=== PATIENT | male | born 1965 | race Caucasian/White ===

== ENCOUNTER → 2025-03-31 12:22 | Outpatient (REF) | payer BC, SELFPAY | LOC: HWRAD 12:22 | PROVIDERS: ATTENDING PHYSICIAN Internal Medicine; FAMILY PHYSICIAN Family Medicine | DX: M54.9 Dorsalgia, unspecified (principal); M54.50 Low back pain, unspecified | CPT/HCPCS: 74018 ==

== ENCOUNTER 2025-11-14 17:39 | Emergency (ER) | payer SELFPAY ==
[2025-11-14 17:41] VITALS: BP 103/61
--- NOTE | 2025-11-14 19:39 | ED.GENMED ---
History of Present Illness
General
Chief Complaint: Musculo-Skeletal Complaint
Time Seen by Provider: 11/14/25 19:26
History of Present Illness
History of Present Illness:
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 Was able to ambulate without
assistance after the fact. Able to range knee and ankle without difficulty but pain with plantarflexion.
Past History
Past History
ED Past Medical History: Arrthythmia and NIDDM
Social History
Tobacco: Smoker
Alcohol: Occasional
Drug: None
Personal:
Living: with family
Employment: Employed
Family History
Family History: Other
Phy Exam
General Physical Exam
General Presentation: well appearing and no apparent distress
General Skin: warm and dry
General Habitus: normal
General Mental: alert
General Hydration: appears well hydrated
ENT Exam
ENT Exam: EOMI, pharynx normal, neck supple and normocephalic
Eye Exam
Eye Exam: PERRL, cornea clear and conjunctiva normal
Cardiovascular Exam
Cardiovascular Exam: regular rate/rhythm, no edema, no murmur and normal peripheral pulses
Pulmonary Exam
Pulmonary Exam: lungs clear, no respiratory distress, no rales, no crackles, no rhonchi, no stridor, no wheezing and no cough
Gastrointestinal Exam
Gastrointestinal Exam: normal bowel sounds, non tender, soft, no organomegaly, no pulsatile mass and non distended
Neurological Exam
Neurological Exam: alert, oriented x3, no motor deficits and speech normal
Musculoskeletal Exam
Musculoskeletal Exam: full ROM, no edema and other (Pain to palpation and midline of right calf. Able to actively plantar and dorsiflex but pain with dorsiflexion)
Skin Exam
Skin Exam: normal color, warm/dry, no rash and no petechia
Psychiatric Exam
Psychiatric Exam: normal mood/affect
Course
Vital Signs
Initial and Last Documented VS:
Initial Vital Signs
Temp Pulse Resp BP Pulse Ox
36.6 C 76 20 103/61 89
11/14/25 17:41 11/14/25 17:41 11/14/25 17:41 11/14/25 17:41 11/14/25 17:41
Last Documented Vital Signs
Temp Pulse Resp BP Pulse Ox
36.6 C 76 20 103/61 89
11/14/25 17:41 11/14/25 17:41 11/14/25 17:41 11/14/25 17:41 11/14/25 17:41
MDM/Problems Addressed
Differential Diagnosis Includes:
Patient is able to actively move his right knee and ankle. Pain with dorsiflexion of his right foot. No obvious deformities, swelling, ecchymosis to the right leg. Able to ambulate. Pain is likely to overextension of right calf and right calf
strain. Discussed supportive measures including rest ice compression and aery-baj-sdyizcw pain control. Follow-up with orthopedics in 1 to 2 weeks if pain is not improving.
*Pulse Oximetry
SaO2: 89
Oxygen Mode of Delivery: Room air
Patient hypoxic: no
*Critical Care Note
Total Time (30-74mins, 75-104mins- exclusive of procedures): Not Applicable
ED Attending Note
-
Portions of this chart may have been created with voice recognition software.� Occasional wrong word or��sound alike� substitutions may have occurred due to the inherent limitations of voice recognition software.
Discharge Plan
Departure
Patient Disposition: Home (Routine Discharge)
Date of Disposition: 11/14/25
Time of Disposition: 19:34
Patient with high blood pressure during this ER visit?: No
Discharge Problem:
Strain of calf muscle, Acute leg pain
Instructions: Lower Extremity Muscle Strain (DC)
Prescriptions:
No Action
glimepiride 4 MG tablet
4 mg PO DAILY
lisinopril 20 MG tablet
20 mg PO DAILY
atorvastatin 10 MG tablet
10 mg PO DAILY
omega [id number] oil [Fish Oil] 1 EACH capsule
4 ea PO DAILY
insulin degludec [Tresiba FlexTouch U-100] 100 UNIT/ML insulin pen
50 unit SQ HS
dulaglutide [Trulicity] 1.5 MG/0.5 ML pen injector
1.5 mg SQ .MONDAY
hydrocodone-acetaminophen 1 TABLET tablet
1 - 2 tab PO Q4HPRN PRN (Reason: Mod-severe pain) 7 Days Qty: 30 0RF
cefuroxime axetil 500 MG tablet
500 mg PO BID 7 Days Qty: 14 0RF
oxycodone-acetaminophen 5 MG/325 MG tablet
1 tab PO Q6HPRN PRN (Reason: pain) Qty: 14 0RF
amoxicillin-pot clavulanate 1 TABLET tablet
1 tab PO Q12 Qty: 14 0RF
Referrals:
Shabnam Hector DO [Family Provider, Family Practice]
Activity Restrictions/Additional Instructions:
. You were seen in the ER for lower leg pain that is likely attributed to a right calf sprain. You should rest, ice and use Tylenol and ibuprofen for pain. Follow-up with orthopedic surgery if symptoms not improved within 7 to 10 days.
Interventions
Interventions:
*General Assessment Last Done: 11/14/25 17:41
*Neglect/Abuse Screening Last Done: 11/14/25 17:41
*ED COVID-19 Vaccine History Last Done: 11/14/25 19:16
*ED Influenza Vaccine History Last Done: 11/14/25 19:16
[facility] Fall Risk Assessment Tool Last Done: 11/14/25 19:16
*Risk Screen - Suicide (C-SSRS) Last Done: 11/14/25 19:16
ED-Musculoskeletal Assessment Last Done: 11/14/25 19:14
Discharge Date and Time
Print Language: [id number]
== END 2025-11-14 20:09 | disposition home or self-care (01) ==
LOC: EMR 17:39
PROVIDERS: EMERGENCY PHYSICIAN Student in an Organized Health Care Education/Training Program; FAMILY PHYSICIAN Family Medicine
DX: S86.111A Strain of other muscle(s) and tendon(s) of posterior muscle group at lower leg level, right leg, initial encounter (principal); X58.XXXA Exposure to other specified factors, initial encounter; I10 Essential (primary) hypertension; E11.9 Type 2 diabetes mellitus without complications; F17.200 Nicotine dependence, unspecified, uncomplicated
CPT/HCPCS: 99282